=== PATIENT | female | born 1960 | race Caucasian/White ===

== ENCOUNTER 2021-02-03 05:05 | Inpatient (IN) | payer OTHER ==
[~2021-02-03] VITALS: Ht 172.7 cm; Wt 76.3 kg
[~2021-02-03 05:05] MED LIST: ALBUTEROL2.5 MG/0.1; ALBUTEROL2.5 MG/0.1 INH; B-12 DOTS500 MCG PO; BENZONATATE100 MG PO; CIPROFLOXACIN500 M3 PO; COMBIVENT INH; DUONEB 2.5-0.5 M3 ML PO; FLONASE 0.05%50 MCG NASAL; LEVAQUIN 500 M500 M2 PO; MONTELUKAST SOD10 MG PO; MULTIVITAMINS PO; PAIN & FEVER325 MG PO; PREDNISONE 10 M10 MG PO; SYMBICORT80 MCG/4.1 INH
[2021-02-03 05:06] VITALS: BP 192/105
[2021-02-03 05:54] LABS: ABSOLUTE NEUTROPHILS 6.2 thou/uL (1.4-8.2); BASOPHILS 0.7 % (0.0-2.0); EOSINOPHILS 8.1 % (0.0-3.0); HEMATOCRIT 48.5 % (37.0-47.0); LYMPHOCYTES 26.1 % (24.0-44.0); MCH 29.8 pg (26.0-34.0); MCHC 32.9 g/dL (28.0-37.0); MCV 90.5 fL (80.0-100.0); MONOCYTES 5.9 % (1.0-8.0); PLATELET COUNT 304 thou/uL (150-400); POLYS 59.2 % (36.0-66.0); RBC 5.36 mil/uL (4.20-5.00); RDW 13.9 % (10.5-14.5); WBC 10.4 thou/uL (4.0-11.0)
[2021-02-03 06:09] LABS: CALCIUM 8.9 mg/dL (8.5-10.1); CREATININE 0.9 mg/dL (0.6-1.0); POTASSIUM 4.3 mmol/L (3.5-5.1)
[2021-02-03 06:18] LABS: ALBUMIN 3.6 g/dL (3.4-5.0); TOTAL BILIRUBIN 0.2 mg/dL (0.2-1.0); TOTAL PROTEIN 7.5 g/dL (6.4-8.2)
[2021-02-03] MEDS ORDERED: PROAIR HFA8.5 GM INH (07:28)
[2021-02-03 08:23] VITALS: BP 145/92
[2021-02-03 14:38] VITALS: BP 117/62
[2021-02-04 08:00] VITALS: BP 139/98
[2021-02-04] MEDS ORDERED: PROAIR HFA8.5 GM INH (09:38)
[2021-02-04] MEDS ORDERED: MEDROL4 M1 PO (09:39)
[2021-02-04 12:57] VITALS: BP 139/98
[2021-02-04 13:43] VITALS: BP 141/86
--- NOTE | 2021-02-05 07:29 | EKG ---
[address] [address] ELECTROCARDIOGRAM REPORT Name: ALAINA POOL Room #: 170-11 [facility] IN ..#: [id number] Admission: 02/03/21 Attend Phys: Shekhar Muniz MD Discharge: 02/04/21 Date of : 60 Report #: [id number] [facility] ED Test Date: 2021-02-03 Test Time: 06:55:08 Pat Name: ALAINA POOL Department: Room: 170 Gender: F Audioprosthologist: Guzman : 1960 Requested By: Jamie Keenan Order Number: [id number] MD: Vitaliy Powell Measurements Intervals [place] Rate: 91 P: 85 DE: 124 QRS: 0 QRSD: 73 T: 64 QT: 354 QTc: 436 Interpretive Statements Sinus rhythm Right atrial enlargement Indeterminate axis Borderline low voltage, extremity leads Compared to ECG 08/31/2012 01:55:19 Indeterminate axis now present ST (T wave) deviation no longer present Electronically Signed On 02-05-2021 7:28:42 CDT by Vitaliy Powell [email or web address] <ELECTRONICALLY SIGNED> By: Vitaliy Powell MD, [facility] 02/05/21 [id number] Vitaliy Powell MD, [facility] /EPI
== END 2021-02-04 13:25 | disposition home or self-care (01) | DRG 189 ==
LOC: ER 05:05 → EROBS 06:49
PROVIDERS: Emergency Medicine; Internal Medicine; ADMIT Internal Medicine; ATTEND Internal Medicine
DX: J96.01 Acute respiratory failure with hypoxia (principal); J45.901 Unspecified asthma with (acute) exacerbation; Z79.899 Other long term (current) drug therapy; Z20.822 Contact with and (suspected) exposure to COVID-19; F17.210 Nicotine dependence, cigarettes, uncomplicated; Z98.51 Tubal ligation status